=== PATIENT | male | born 1960 | race Caucasian/White ===

== ENCOUNTER 2016-09-04 08:44 | Inpatient (IN) | payer SELFPAY ==
[~2016-09-04] VITALS: Ht 170.2 cm; Wt 83.9 kg
--- NOTE | ~2016-09-04 | CST ---
Cardiac Perfusion Imaging Demographics Patient Name LISA SIMS JR Gender Male Patient Number [id number] Race Visit Number [id number] Ethnicity or Corporate ID Room Number 413 Accession Number [id number] Height 67 inches Date of 1960 Weight 184 pounds Age 56 year(s) BSA 1.95 m Referring Physician David Zapata MD BMI 28.82 kg/m [facility] Date of study 09/05/2016 Physician Radiology Marisa Schmid M.D. Supervising MD/MLP David Zapata MD NM Technologist Kecia Michelle Ordering Physician David Zapata MD Stress Clint Newby door technician Stress ECG Reading David Zapata MD Nurse Marianna Minor Physician Elgin Jarrett The procedure was explained in detail to the patient. Risks, complications and alternative treatments were reviewed. Written consent was obtained. Medications Reviewed with Patient prior to Procedure. Procedure Procedure Type: Nuclear Stress Test:Cardiac Study SF Procedure Start time: 09/05/2016 07:45 Indications: Chest pain, History of CAD, Hyperlipidemia, Hypertension, Diabetes and Family history of coronary artery disease. Risk Factors The patient risk factors include:prior PCI;hypertension, diabetes mellitus, dyslipidemia and prior GA . Conclusions Summary Perfusion Images: The overall quality of the study is good. Left ventricular cavity is noted to be normal on the stress and rest studies. There is no evidence of abnormal lung activity. The right ventricle is not visualized and cannot be assessed. Stress SPECT images demonstrate homogenous tracer distribution throughout the myocardium. Rest SPECT images demonstrate homogenous tracer distribution throughout the myocardium. Gated SPECT imaging reveals normal myocardial thickening and wall motion. The left ventricular ejection fraction was calculated to be 56%. Impression 1. Normal myocardial perfusion. 2. Normal left ventricular systolic function with an ejection fraction of 56 %. Stress Protocols Resting ECG No ECG changes suggestive of ischemia. Nonspecific ST-T wave changes. Resting HR:86 bpm Resting BP:128/78 mmHg Stress Protocol:Exercise Predicted HR: 165 bpm Test duration:: min Symptoms Chest pain 7/10 Complications Procedure complication: None. Stress Interpretation Negative stress ECG for ischemia. Normal heart rate and blood pressure response to stress. No atrial or ventricular arrhythmias. achieved 83% mphr stopped do to claudication left leg 7/10 chest pain in recovery /resolved Imaging Results Summed scores - Summed stress score: 11 - Summed rest score: 9 - Summed difference score: 2 Stress ejection Ejection fraction:56 % EDV :89 ml ESV :39 ml Stroke volume :50 ml LV mass :128 gr Imaging Protocols Rest Stress Isotope:Tc99m Myoview IV Isotope: Tc99m Myoview IV Isotope dose:10.3 mCi Isotope dose:31 mCi Date:09/05/2016 06:30 Date:09/05/2016 07:45 Technique: SPECT Technique: Gated Supine SPECT Supine IV remains in place after procedure. Scan Time:45-60 minutes post Scan Time:15-30 minutes post injection injection Medical History Admission Data Admission date: 09/04/2016 Admission Time: 10:09 Hospital Status: Inpatient. Signatures
[2016-09-06] MEDS ORDERED: ASPIRIN EC81 MG PO (15:40)
[2016-09-06] MEDS ORDERED: LIPITOR DPS20 MG PO (15:41)
[2016-09-06] MEDS ORDERED: GLUCOPHAGE-DPS500 MG PO (15:41)
--- NOTE | 2016-10-07 08:28 | HP ---
ADMIT: 09/04/2016 RM/LOC: [facility] MR#: [id number] [facility]#: [id number] [address] [facility] [address] [place], [place] [address] LEVI GONZALEZ [address] [place] [address] History and Physical SEX: M AGE: 56 : 1960 DATE OF SERVICE: 09/04/2016 REASON FOR HOSPITALIZATION: Uncontrolled diabetes. disease and stents, placed back in 2010. He developed exertional left chest pain at work in the morning of presentation and came to the emergency room where we admitted him after finding his initial enzymes and EKG to be normal and a blood sugar greater than 400. PAST MEDICAL HISTORY: Diabetes, coronary artery disease. MEDICATIONS: He takes aspirin 1 a day and Afrin nasal spray. SOCIAL HISTORY: Nonsmoker. FAMILY HISTORY: Noncontributory. REVIEW OF SYSTEMS: Chest discomfort. Chest pain. He has not been taking diabetic medications. No edema, palpitations, or shortness of breath. PHYSICAL EXAMINATION: VITAL SIGNS: Blood pressure initially 157/87, blood sugar greater than 400. He was without chest pain upon my initial assessment. HEART: Regular. LUNGS: Clear. No peripheral edema. LABORATORY DATA: Blood sugar 407, triglycerides 1117. Chest x-ray negative. IMPRESSION: 1. Uncontrolled diabetes mellitus. 2. Chest pain. PLAN: Admit, blood sugar management, rule out MS and stress evaluation. Wilfrido Hernandez DO/ modl JOB #: [id number] CC: Wilfrido Hernandez DO, Attending Physician Wilfrido Hernandez DO, Family Physician
--- NOTE | 2016-10-07 08:28 | DS ---
ADMIT: 09/04/2016 RM/LOC: [address] [facility] MR#: [id number] [id number] [place], [place] [address] LEVI GONZALEZ [address] [place] [address] General Discharge Summary SEX: M AGE: 56 : 1960 ADMISSION DATE: 09/04/2016 DISCHARGE DATE: 09/05/2016 REASON FOR HOSPITALIZATION: Chest pain, hyperglycemia history. 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 In the Emergency Department, his initial cardiac enzymes and EKG were negative. His blood sugar was well over 400, and he was not taking any diabetic management. HOSPITAL COURSE: He was admitted to the hospital, started on metformin and atorvastatin for triglyceride level of 1117. He underwent serial cardiac enzymes and EKGs, which were negative, and then underwent cardiac stress evaluation which did not show any evidence of reversible ischemia. On 09/05, we felt he was appropriate for dismissal home. He was to continue atorvastatin and metformin and have one time follow up in my office within two weeks of dismissal. FINAL DIAGNOSES: 1. Chest pain. 2. Uncontrolled diabetes mellitus. 3. Hyperlipidemia. Wilfrido Hernandez DO/ edenl JOB #: [id number] CC: Wilfrido Hernandez DO, Attending Physician Wilfrido Hernandez DO, Family Physician
== END 2016-09-05 15:54 | disposition home or self-care (01) | DRG 313 ==
LOC: ER 08:44 → 4PCU 10:09
PROVIDERS: ADMIT Internal Medicine
DX: R07.9 Chest pain, unspecified (principal); I25.10 Atherosclerotic heart disease of native coronary artery without angina pectoris; E11.65 Type 2 diabetes mellitus with hyperglycemia; E78.5 Hyperlipidemia, unspecified; Z79.82 Long term (current) use of aspirin; Z23 Encounter for immunization; Z95.5 Presence of coronary angioplasty implant and graft